=== PATIENT | female | born 1985 | race Caucasian/White ===

== ENCOUNTER → 2016-10-11 | Outpatient (CLI) | payer OTHER | LOC: FIMAGING 10:44 | PROVIDERS: ATTEND Nurse Practitioner Women's Health | DX: M79.622 Pain in left upper arm (principal); N64.4 Mastodynia ==

== ENCOUNTER 2018-06-10 08:42 | Emergency (ER) | payer OTHER ==
[2018-06-10] MEDS ORDERED: KETOROLAC 15 MG/1 ML SDV IVP ONE (09:18)
[2018-06-10] MEDS ORDERED: DEXAMETHASONE 4 MG/ML VIAL IVP ONE (09:18)
[2018-06-10] MEDS ORDERED: DIAZEPAM 10 MG/2 ML SYR IVP ONE (09:18)
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
[2018-06-10] MEDS ORDERED: IOPAMIDOL (ISOVUE 370) 100 ML BTL IV ONE (09:49)
[2018-06-10] MEDS ORDERED: CYCLOBENZAPRINE 10 MG TAB PO ONE (10:38)
[2018-06-10] MEDS ORDERED: LIDOCAINE 4%/MENTHOL 1% PATCH TD ONE (10:39)
[2018-06-10 10:59] VITALS: BP 100/52
[2018-06-10] MEDS ORDERED: PATCH REMOVAL 1 EA PATCH TD SCH (21:00)
== END 2018-06-10 10:59 | disposition home or self-care (01) ==
DX: S16.1XXA Strain of muscle, fascia and tendon at neck level, initial encounter (principal); F41.9 Anxiety disorder, unspecified; V49.50XA Passenger injured in collision with unspecified motor vehicles in traffic accident, initial encounter; Y92.410 Unspecified street and highway as the place of occurrence of the external cause
CPT/HCPCS: 82435-PO; 82565-PO; 82947-PO; 84132-PO; 84295-PO; 84484-ER; 84520-PO; 85014-ER; 96374; J1100; J1885; J3360; Q9967

== ENCOUNTER 2018-06-15 17:46 | Emergency (ER) | payer OTHER ==
[2018-06-15 17:52] VITALS: BP 106/69
--- NOTE | 2018-06-15 17:58 | EDPHY ---
H & P Stated Complaint: Poss med reaction Time Seen by Provider: 06/15/18 17:57 HPI/ROS: CHIEF COMPLAINT: Insomnia HISTORY OF PRESENT ILLNESS: 33-year-old female presents with a 72 hr history of insomnia. She was seen in this emergency department 1 week ago for headache and was given Decadron, Valium IV. She initially felt better after these medications and was able to sleep. Onset of insomnia 4 nights ago. Does not think that she has slept at all since then. Has been doing internet searches and is very worried that she has Fatal Familial Insomnia. h/o anxiety, previously prescribed Cymbalta, but did not start taking this medication because of multiple side effects listed on the labeling. REVIEW OF SYSTEMS: complete 10 point ROS reviewed and is negative except for the noted elements in the HPI - Personal History LMP (Females 10-55): 8-14 Days Ago Current Tetanus/Diphtheria Vaccine: Yes - Medical/Surgical History Hx Asthma: No Hx Chronic Respiratory Disease: No Hx Diabetes: No Hx Cardiac Disease: No Hx Renal Disease: No Hx Cirrhosis: No Hx Alcoholism: No Hx HIV/AIDS: No Hx Splenectomy or Spleen Trauma: No Other PMH: insomnia - Social History Smoking Status: Never smoked - Physical Exam Exam: General Appearance: Alert, anxious Eyes: Pupils equal and round, EOMI, no nystagmus, no conjunctival pallor or injection ENT, Mouth: Mucous membranes moist Neck: Normal inspection Respiratory: Lungs are clear to auscultation Cardiovascular: Regular rate and rhythm Gastrointestinal: Abdomen is soft and nontender Neurological: Alert, oriented, motor 5/5, normal gait Skin: Warm and dry Extremities: Normal inspection Psychiatric: Anxious Constitutional: Initial Vital Signs Temperature (C) 37.4 C 06/15/18 17:50 Heart Rate 83 06/15/18 17:50 Respiratory Rate 18 06/15/18 17:50 Blood Pressure 106/69 06/15/18 17:50 O2 Sat (%) 99 06/15/18 17:50 O2 Delivery Mode Room Air Allergies/Adverse Reactions: No Known Allergies Allergy (Unverified 06/15/18 17:52) Home Medications: Medication Instructions Recorded Cyclobenzaprine [Flexeril 10 MG 10 mg PO TID #10 tab 06/10/18 (RX)] LORazepam [Ativan 1 mg (RX)] 1 mg PO Q6 PRN #3 tab 06/10/18 Zolpidem Tartrate [Ambien] 10 mg PO HS PRN #10 tablet 06/15/18 Medical Decision Making ED Course/Re-evaluation: This patient presents with insomnia. She has overwhelming underlying anxiety and is convinced that she has a very rare disease. Her partner is quite concerned as well. She has an appointment to see a sleep medicine specialist next week. She is hesitant to take any medications. I strongly encouraged her to take Ambien. I consulted her PCP, Dr. Overton, who confirms long h/o anxiety. Encouraged follow-up with her primary care physician. Departure - Departure Disposition: Home, Routine, Self-Care Clinical Impression: Insomnia, Anxiety Condition: Good Instructions: Insomnia (ED), Anxiety (ED) Additional Instructions: Follow-up with Dr. Overton or one of his partners on Sunday. I spoke with Dr. peter koenig and he is aware of your insomnia. Referrals: NONE *PRIMARY CARE P,. [Primary Care Provider] - As per Instructions Prescriptions: Zolpidem Tartrate [Ambien] 10 mg PO HS PRN #10 tablet PRN Reason: insomnia
== END 2018-06-15 18:46 | disposition home or self-care (01) ==
DX: G47.00 Insomnia, unspecified (principal); F41.9 Anxiety disorder, unspecified

== ENCOUNTER → 2018-07-05 | Outpatient (CLI) | payer OTHER | LOC: BMCIMAGING 17:00 | PROVIDERS: ATTEND Internal Medicine | DX: F41.8 Other specified anxiety disorders (principal) ==